=== PATIENT | female | born 1970 | race Caucasian/White ===

== ENCOUNTER 2018-10-18 18:21 | Emergency (ER) | payer BC ==
[2018-10-18] MEDS ORDERED: Proparacaine 0.5% Ophth Soln 15 ML Bottle EYELF ONE (19:02)
[2018-10-18] MEDS ORDERED: Fluorescein 1 MG Ophth Strip EYERT ONE (19:03)
[2018-10-18] MEDS ORDERED: Take Home: Gentamicin 0.3% Ophth Oint 3.5 GM, 1 Tube Pack EYEBOTH ONE (19:27)
[2018-10-18] MEDS ORDERED: Take Home: Acetaminophen/Codeine 300 MG/30 MG, 5 Tab Pack PO ONE (19:41)
--- NOTE | 2018-10-18 23:45 | EDM.PDOC ---
ED HPI GENERAL MEDICAL PROBLEM - General Chief Complaint: Eye Problems Stated Complaint: CONTACT STUCK IN R EYE Time Seen by Provider: 10/18/18 18:21 Source of Information: Reports: Patient History Limitations: Reports: No Limitations - History of Present Illness INITIAL COMMENTS - FREE TEXT/NARRATIVE: Pt. complains of contact stuck in her R eye. She states that she has been trying to remove the contact all day today. She complains of pain and redness to the eye. Pt. states that she has her contact in her L eye, and states that her vision is equal in both eyes a feels as though the contact is stuck on the iris. She states that the majority of the pain is located in the R upper lateral portion of the eye. She states that she put both contacts in her eyes this AM. Onset: Today Onset Date: 10/18/18 Location: Reports: Face (R eye) - Related Data Allergies Allergy/AdvReac Type Severity Reaction Status Date / Time No Known Allergies Allergy Verified 10/18/18 18:55 Home Meds: Home Meds Baclofen 10/18/18 [History] Gabapentin [Neurontin] 0 mg PO DAILY 10/18/18 [History] oxyCODONE HCl/Acetaminophen [Percocet 5-325 mg Tablet] 1 each PO ONCALL [History] Past Medical History Musculoskeletal History: Reports: Back Pain, Chronic, Neck Pain, Chronic - Past Surgical History Neurological Surgical History: Reports: Lumbar Spine Social & Family History - Tobacco Use Smoking Status *Q: Unknown Ever Smoked ED ROS GENERAL - Review of Systems Review Of Systems: ROS reveals no pertinent complaints other than HPI. ED EXAM GENERAL W FULL EYE - Physical Exam Exam: See Below Exam Limited By: No Limitations General Appearance: Alert, WD/WN, No Apparent Distress Eye Exam: Right Eye: Conjunctival Injection, Corneal Abrasion, Bilateral Eye: EOMI, Normal Fundi, Normal Inspection, PERRL Visual Acuity (R) 20/: 20 Visual Acuity (L) 20/: 20 With Correction: Yes Eyelids: Right: Edema (significant chemosis noted), Erythema, Lid Everted for Exam Conjunctiva & Sclera: Right: Foreign Body (possible retained contact lens, unable to liberate lens. No obvious retained foreign body under upper or lower lid), Injected Cornea Exam: Right: Corneal Abrasion (Numerous corneal abrasions located on sclera) Extraocular Movements: Right: Intact Pupils: Normal Accommodation Pupillary Size: Bilateral: 3 mm Pupillary Reaction: Right: Brisk Anterior Chamber: Bilateral: Normal Appearance Posterior Chamber: Bilateral: Normal Funduscopic Course - Vital Signs Last Recorded V/S: Last Vital Signs Temp 36.4 C 10/18/18 18:50 Pulse 74 10/18/18 18:50 Resp 16 10/18/18 18:50 BP 133/88 10/18/18 18:50 Pulse Ox 100 10/18/18 18:50 - Orders/Labs/Meds Meds: Medications Discontinued Medications Generic Name Dose Route Start Last Admin Trade Name Xi PRN Reason Stop Dose Admin Acetaminophen/Codeine Phosphate 1 packet 10/18/18 19:41 10/18/18 19:45 Take Home: Acetam/Codeine 300-30 Mg, 5 Pack PO 10/18/18 19:42 1 packet ONETIME ONE Administration Fluorescein Sodium 1 mg 10/18/18 19:03 10/18/18 19:07 Ful-Daylin EYERT 10/18/18 19:04 1 mg ONETIME ONE Administration Gentamicin Sulfate 1 packet 10/18/18 19:27 10/18/18 19:35 Take Home: Gentamicin 0.3% Ophth Oint, 1 Tube EYEBOTH 10/18/18 19:28 1 packet ONETIME ONE Administration Proparacaine HCl 1 ml 10/18/18 19:02 10/18/18 19:06 Proparacaine 0.5% Ophth Soln EYELF 10/18/18 19:03 2 drop ONETIME ONE Administration Departure - Departure Time of Disposition: 19:51 Disposition: Home, Self-Care 01 Condition: Good Clinical Impression: Corneal abrasion, right - Discharge Information Referrals: PCP,Not In Area [Primary Care Provider] - Forms: ED Department Discharge Additional Instructions: Keep patch on. Follow-up tomorrow with Dr. Guzman or one of his colleagues tomorrow at [facility]. Call [phone] right away in the morning. Tell them you were seen in the ER and you need to be seen right away per Dr. Guzman. Tylenol #3 1 tab every 4-6 hours as needed for pain. - Assessment/Plan Plan: Keep patch on. Follow-up tomorrow with Dr. Guzman or one of his colleagues tomorrow at [facility]. Call [phone] right away in the morning. Tell them you were seen in the ER and you need to be seen right away per Dr. Guzman. Tylenol #3 1 tab every 4-6 hours as needed for pain.
== END 2018-10-18 19:51 | disposition home or self-care (01) ==
LOC: VM.ED 18:21
DX: S05.01XA Injury of conjunctiva and corneal abrasion without foreign body, right eye, initial encounter (principal); Z79.899 Other long term (current) drug therapy; W22.8XXA Striking against or struck by other objects, initial encounter
CPT/HCPCS: 99283; A9270